=== PATIENT | female | born 1965 | race Caucasian/White ===

== ENCOUNTER 2019-04-10 21:12 | Emergency (ER) | payer MEDICARE ==
[2019-04-10] MEDS ORDERED: predniSONE 20 MG TAB ONE (21:30)
[2019-04-10] MEDS ORDERED: Famotidine 20 MG TAB ONE (21:30)
== END 2019-04-10 21:35 | disposition home or self-care (01) ==
LOC: NAV ERS 21:12
DX: L50.9 Urticaria, unspecified (principal); J44.9 Chronic obstructive pulmonary disease, unspecified; G43.909 Migraine, unspecified, not intractable, without status migrainosus; F31.9 Bipolar disorder, unspecified; F20.9 Schizophrenia, unspecified; F41.9 Anxiety disorder, unspecified; F17.210 Nicotine dependence, cigarettes, uncomplicated; Z79.899 Other long term (current) drug therapy; Z79.51 Long term (current) use of inhaled steroids
CPT/HCPCS: 99282; J7512

== ENCOUNTER 2019-09-06 14:51 | Emergency (ER) | payer MEDICARE, OTHER ==
[2019-09-06] MEDS ORDERED: methylPREDNISolone Acetate 40 mg/ml Vial ONE (15:38)
[2019-09-06] MEDS ORDERED: traMADol HCl 50 MG TAB ONE (15:38)
== END 2019-09-06 15:58 | disposition home or self-care (01) ==
LOC: NAV ERS 14:51
DX: M06.9 Rheumatoid arthritis, unspecified (principal); M77.9 Enthesopathy, unspecified; F31.9 Bipolar disorder, unspecified; F20.9 Schizophrenia, unspecified; F41.9 Anxiety disorder, unspecified; G43.909 Migraine, unspecified, not intractable, without status migrainosus; F17.210 Nicotine dependence, cigarettes, uncomplicated
CPT/HCPCS: 96372; 99283; J1030

== ENCOUNTER 2019-11-21 22:40 | Emergency (ER) | payer MEDICARE ==
[2019-11-21] MEDS ORDERED: Morphine 4 MG/ML VIAL ONE (23:14)
== END 2019-11-21 23:34 | disposition home or self-care (01) ==
LOC: NAV ERS 22:40
DX: M54.2 Cervicalgia (principal); G89.29 Other chronic pain; J44.9 Chronic obstructive pulmonary disease, unspecified; G43.909 Migraine, unspecified, not intractable, without status migrainosus; K74.60 Unspecified cirrhosis of liver; F31.9 Bipolar disorder, unspecified; F20.9 Schizophrenia, unspecified; F17.210 Nicotine dependence, cigarettes, uncomplicated
CPT/HCPCS: 96372; 99283; J2270

== ENCOUNTER 2019-12-26 15:27 | Emergency (ER) | payer MEDICARE ==
--- NOTE | 2019-12-26 15:57 | RAD ---
LEFT WRIST 3 VIEWS: HISTORY: Injury, left wrist pain. FINDINGS/IMPRESSION: No acute fracture or dislocation is identified. If symptoms do not improve, followup exam should be obtained in 7-10 days. POS: [facility]
[2019-12-26] MEDS ORDERED: traMADol HCl 50 MG TAB ONE (16:15)
== END 2019-12-26 16:22 | disposition home or self-care (01) ==
LOC: NAV ERS 15:27
DX: S63.502A Unspecified sprain of left wrist, initial encounter (principal); J44.9 Chronic obstructive pulmonary disease, unspecified; G43.909 Migraine, unspecified, not intractable, without status migrainosus; F41.9 Anxiety disorder, unspecified; F31.9 Bipolar disorder, unspecified; F17.210 Nicotine dependence, cigarettes, uncomplicated; W20.8XXA Other cause of strike by thrown, projected or falling object, initial encounter

== ENCOUNTER 2019-12-30 22:38 | Emergency (ER) | payer MEDICARE ==
[2019-12-30] MEDS ORDERED: Ketorolac Tromethamine 60 MG/2 ML VIAL ONE (23:23)
--- NOTE | 2019-12-30 23:39 | RAD ---
RADIOGRAPH LEFT WRIST 3 VIEWS: DATE: 12/30/2019 11:19 PM HISTORY: 54-year-old female with acute, traumatic left wrist pain FINDINGS: No fracture is identified. However, if there is snuffbox tenderness following trauma that suggests an occult scaphoid fracture, then the general recommendation is immobilization and follow-up imaging in 5-10 days. Chronic mild diastases of the distal radial ulnar joint. No interval change since 12/30/2017. IMPRESSION: No evidence of acute fracture
== END 2019-12-30 23:56 | disposition home or self-care (01) ==
LOC: NAV ERS 22:38
DX: M25.532 Pain in left wrist (principal); J44.9 Chronic obstructive pulmonary disease, unspecified; G43.909 Migraine, unspecified, not intractable, without status migrainosus; F41.9 Anxiety disorder, unspecified; F31.9 Bipolar disorder, unspecified; F17.210 Nicotine dependence, cigarettes, uncomplicated
CPT/HCPCS: 96372; J1885

== ENCOUNTER 2020-04-08 19:32 | Emergency (ER) | payer MEDICARE ==
[2020-04-08] MEDS ORDERED: Adacel (T-DAP) 0.5 ML SYRINGE ONE (19:46)
[2020-04-08] MEDS ORDERED: Bacitracin 1 PK ONE (19:46)
--- NOTE | 2020-04-08 20:19 | RAD ---
XR Shoulder Rt 3 View STANDARD History: Fall. Pain Comparison: None. Findings: Evidence of old injury of the acromioclavicular joint with erosive changes of the acromion and narrowed distal clavicle. No acute displaced fracture or malalignment. Ribs are intact. Impression: Chronic findings. No acute fracture.
--- NOTE | 2020-04-08 20:23 | RAD ---
XR Elbow Rt 2 View History: Tripped and fell Comparison: None. Findings: The previously radiopaque debris along the midforearm and mid humerus although only seen on a single view and could be artifact. No acute displaced fracture or malalignment. Impression: No acute displaced fracture or malalignment of the elbow. No joint effusion.
[2020-04-08] MEDS ORDERED: Ketorolac Tromethamine 60 MG/2 ML VIAL ONE (20:29)
[2020-04-08] MEDS ORDERED: Ondansetron ODT 4 MG TAB ONE (20:29)
[2020-04-08] MEDS ORDERED: HYDROcodone/Acetaminophen 5/325 mg Tablet ONE (20:29)
--- NOTE | 2020-04-08 20:53 | RAD ---
XR Knee Lt 4 View STANDARD History: Injury. Tripped and fell Comparison: None. Findings: No simple joint effusion. Mild vascular calcifications. No acute fracture or malalignment. Small medial and lateral compartment osteophytes. Impression: No acute fracture or malalignment.
== END 2020-04-08 21:00 | disposition home or self-care (01) ==
LOC: NAV ERS 19:32
DX: S80.02XA Contusion of left knee, initial encounter (principal); S50.01XA Contusion of right elbow, initial encounter; S40.011A Contusion of right shoulder, initial encounter; S80.212A Abrasion, left knee, initial encounter; F41.1 Generalized anxiety disorder; F43.0 Acute stress reaction; J44.9 Chronic obstructive pulmonary disease, unspecified; K74.60 Unspecified cirrhosis of liver; F41.9 Anxiety disorder, unspecified; F31.9 Bipolar disorder, unspecified; F17.210 Nicotine dependence, cigarettes, uncomplicated; Z79.51 Long term (current) use of inhaled steroids; Z23 Encounter for immunization; Z79.899 Other long term (current) drug therapy; W01.0XXA Fall on same level from slipping, tripping and stumbling without subsequent striking against object, initial encounter
CPT/HCPCS: 90471; 90715; 96372; J1885; Q0162

== ENCOUNTER 2020-10-06 11:16 | Emergency (ER) | payer MEDICARE, SELFPAY | END 2020-10-06 12:10 | disposition left against medical advice (07) | LOC: NAV ERS 11:16 | DX: R50.9 Fever, unspecified (principal); R10.11 Right upper quadrant pain; R53.83 Other fatigue; R05 Cough; R06.02 Shortness of breath; R11.2 Nausea with vomiting, unspecified; R19.7 Diarrhea, unspecified; Z20.828 Contact with and (suspected) exposure to other viral communicable diseases; R07.89 Other chest pain; F17.200 Nicotine dependence, unspecified, uncomplicated | CPT/HCPCS: 93005; 94760 ==

== ENCOUNTER 2020-12-06 14:29 | Emergency (ER) | payer MEDICARE ==
--- NOTE | 2020-12-06 16:16 | RAD ---
Exam:Hand first digit 3 views HISTORY: Swelling. Erythema. 1 month injury. COMPARISON: None FINDINGS: Soft tissue swelling. Punctate calcification, likely chronic. Mild loss of the distal inter phalangeal joint space. No acute fracture. No cortical irregularity or periosteal reaction. No radiopaque foreign body. IMPRESSION: 1. Soft tissue swelling. 2. No evidence of fracture. No evidence of radiopaque foreign body.
== END 2020-12-06 16:09 | disposition home or self-care (01) ==
LOC: NAV ERS 14:29
DX: M79.644 Pain in right finger(s) (principal); J44.9 Chronic obstructive pulmonary disease, unspecified; F17.210 Nicotine dependence, cigarettes, uncomplicated; K74.60 Unspecified cirrhosis of liver

== ENCOUNTER 2021-02-14 14:30 | Emergency (ER) | payer MEDICARE ==
[2021-02-14] MEDS ORDERED: ALPRAZolam 0.5 MG TAB ONE (15:31)
[2021-02-14] MEDS ORDERED: Acetaminophen 500 MG TAB ONE ×2 (15:31)
[2021-02-14 15:34] LABS: #Basophils 0.1 thou/uL (0.0-0.2); #Eosinphils 0.2 thou/uL (0.0-0.7); #Lymphocytes 2.6 thou/uL (1.20-3.40); #Monocytes 0.5 thou/uL (0.11-0.59); %Basophils 1.4 % (0.0-1.0); %Eosinophils 2.2 % (0.0-10.0); %Lymphocytes 35.7 % (21.0-51.0); %Monocytes 6.3 % (0.0-10.0); %Neutrophils 54.4 % (42.0-75.0); Hemoglobin 12.2 g/dL (12.0-16.0); Mean Corpuscular HGB CONC 30.4 g/dL (32.0-36.0); Mean Corpuscular Hemoglobin 27.8 pg (27.0-31.0); Mean Corpuscular Volume 91.5 fL (78.0-98.0); Mean Platelet Volume 7.8 fL (7.4-10.4); Platelet Count 235 thou/uL (130-400); RBC Distribution Width 12.3 % (11.5-14.5); White Blood Cell (WBC) Count 7.4 thou/uL (4.8-10.8)
[2021-02-14 15:49] LABS: ALT (SGPT) 34 U/L (8-55); AST (SGOT) 33 U/L (5-34); Acetaminophen Less than 6.0 mcg/mL (10.0-30.0); Albumin 3.9 g/dL (3.5-5.0); Alcohol 27 mg/dL (Less than 10); Alkaline Phosphatase 103 U/L (40-110); Anion Gap 15 mmol/L (10-20); BUN (Urea Nitrogen) 14 mg/dL (9.8-20.1); Bilirubin, Total 0.4 mg/dL (0.2-1.2); Calc. Creatinine Clearance 0 mL/min (70-130); Calcium 8.6 mg/dL (7.8-10.44); Carbon Dioxide 23 mmol/L (22-29); Chloride 104 mmol/L (98-107); Globulin 3.2 g/dL (2.4-3.5); Glucose 111 mg/dL (70-105); Potassium 3.9 mmol/L (3.5-5.1); Protein, Total 7.1 g/dL (6.0-8.3); Salicylate Less than 8.0 mg/dL (15.0-30.0); Sodium 138 mmol/L (136-145)
[2021-02-14 16:30] LABS: Bilirubin Negative (Negative); Blood, Urine Negative (Negative); Glucose, Urine (Dipstick) Negative (Negative); Ketone, Urine Negative (Negative); Leukocyte Moderate (Negative); Nitrite Negative (Negative); Protein, Urine (Dipstick) Negative (Neg-Trace); Urobilinogen 0.2 mg/dL (Less than 2)
[2021-02-14 16:31] LABS: Clarity SL HAZY (Clear)
[2021-02-14 16:32] LABS: Pregnancy Test - Urine (BHCG) Negative (Negative); Pregu Control Background? CLEAR/WHITE (CLR/WHITE); Pregu Control Bar Appear? YES (CONTROL BAR)
[2021-02-14 16:35] LABS: Amphetamine Detected (NotDetected); Barbiturates Screen Not Detected (NotDetected); Benzodiazepine Screen Not Detected (NotDetected); Cocaine Metabolite Screen Not Detected (NotDetected); Medtox Control Line Valid? VALID (VALID); Methadone Not Detected (NotDetected); Methamphetamine Detected (NotDetected); Opiate Screen Detected (NotDetected); Oxycodone Screen Not Detected (NotDetected); Phencyclidine (PCP) Not Detected (NotDetected); THC/Cannabinoid Screen Not Detected (NotDetected); Tricyclic Screen Not Detected (NotDetected)
[2021-02-14 16:41] LABS: RBC/HPF 0-3 HPF (0-3); Squamous Epithelial 0-3 HPF (0-3)
== END 2021-02-14 19:09 | disposition home or self-care (01) ==
LOC: NAV ERS 14:30
DX: S51.812A Laceration without foreign body of left forearm, initial encounter (principal); S51.851A Open bite of right forearm, initial encounter; F43.20 Adjustment disorder, unspecified; F15.10 Other stimulant abuse, uncomplicated; J44.9 Chronic obstructive pulmonary disease, unspecified; I10 Essential (primary) hypertension; F17.210 Nicotine dependence, cigarettes, uncomplicated; Z79.899 Other long term (current) drug therapy; Y28.1XXA Contact with knife, undetermined intent, initial encounter
CPT/HCPCS: 80053; 80306; 80307; 81003; 81015; 81025; 85025; 99284

== ENCOUNTER 2021-06-14 12:09 | Emergency (ER) | payer MEDICARE ==
[2021-06-14] MEDS ORDERED: Ondansetron ODT 4 MG TAB ONE (13:16)
[2021-06-14] MEDS ORDERED: Ketorolac Tromethamine 60 MG/2 ML VIAL ONE (13:16)
== END 2021-06-14 13:30 | disposition home or self-care (01) ==
LOC: NAV ERS 12:09
DX: S60.221A Contusion of right hand, initial encounter (principal); R00.0 Tachycardia, unspecified; I10 Essential (primary) hypertension; F17.210 Nicotine dependence, cigarettes, uncomplicated; Z79.82 Long term (current) use of aspirin; W22.8XXA Striking against or struck by other objects, initial encounter
CPT/HCPCS: 96372; J1885; Q0162

== ENCOUNTER 2021-07-22 17:32 | Emergency (ER) | payer OTHER, MEDICARE ==
[2021-07-22] MEDS ORDERED: Ketorolac Tromethamine 60 MG/2 ML VIAL ONE (18:20)
== END 2021-07-22 18:35 | disposition home or self-care (01) ==
LOC: NAV ERS 17:32
DX: S63.91XA Sprain of unspecified part of right wrist and hand, initial encounter (principal); J44.9 Chronic obstructive pulmonary disease, unspecified; I10 Essential (primary) hypertension; K74.60 Unspecified cirrhosis of liver; F17.210 Nicotine dependence, cigarettes, uncomplicated; W01.0XXA Fall on same level from slipping, tripping and stumbling without subsequent striking against object, initial encounter; Z79.82 Long term (current) use of aspirin
CPT/HCPCS: 96372; J1885

== ENCOUNTER 2021-11-18 19:26 | Emergency (ER) | payer OTHER, MEDICARE ==
[2021-11-18] MEDS ORDERED: HYDROcodone/Acetaminophen 5/325 mg Tablet ONE (19:55)
[2021-11-18] MEDS ORDERED: Amoxicillin/Potassium Clav 875 MG TAB ONE (19:55)
== END 2021-11-18 20:10 | disposition home or self-care (01) ==
LOC: NAV ERS 19:26
DX: S61.251A Open bite of left index finger without damage to nail, initial encounter (principal); I10 Essential (primary) hypertension; J44.9 Chronic obstructive pulmonary disease, unspecified; F17.210 Nicotine dependence, cigarettes, uncomplicated; W54.0XXA Bitten by dog, initial encounter; Z87.19 Personal history of other diseases of the digestive system
CPT/HCPCS: 99282

== ENCOUNTER 2021-12-29 | Emergency (ER) | payer MEDICARE ==
[2021-12-29] MEDS ORDERED: Ketorolac Tromethamine 30 MG/ML VIAL ONE (20:39)
[2021-12-29] MEDS ORDERED: Acetaminophen 500 MG TAB ONE (20:39)
[2021-12-29 20:43] LABS: #Basophils 0.1 thou/uL (0.0-0.2); #Eosinphils 0.1 thou/uL (0.0-0.7); #Lymphocytes 3.5 thou/uL (1.20-3.40); #Monocytes 0.5 thou/uL (0.11-0.59); #Neutrophils 5.8 thou/uL (1.40-6.50); %Basophils 1.4 % (0.0-1.0); %Eosinophils 1.2 % (0.0-10.0); %Lymphocytes 34.5 % (21.0-51.0); %Monocytes 4.8 % (0.0-10.0); Hemoglobin 15.7 g/dL (12.0-16.0); Mean Corpuscular HGB CONC 31.5 g/dL (32.0-36.0); Mean Corpuscular Hemoglobin 28.7 pg (27.0-31.0); Mean Platelet Volume 7.4 fL (7.4-10.4); Platelet Count 356 thou/uL (130-400); RBC Distribution Width 12.3 % (11.5-14.5); Red Blood Cell (RBC) Count 5.46 mill/uL (4.20-5.40)
[2021-12-29] MEDS ORDERED: Ondansetron PF 4 MG/2 ML Vial ONE (20:52)
[2021-12-29 21:01] LABS: ALT (SGPT) 37 U/L (8-55); AST (SGOT) 36 U/L (5-34); Albumin 4.4 g/dL (3.5-5.0); Alkaline Phosphatase 97 U/L (40-110); Anion Gap 16 mmol/L (10-20); BUN (Urea Nitrogen) 9 mg/dL (9.8-20.1); Bilirubin, Total 0.3 mg/dL (0.2-1.2); CK (CPK) 91 U/L (29-168); Calc. Creatinine Clearance 0 mL/min (70-130); Calcium 8.9 mg/dL (7.8-10.44); Carbon Dioxide 22 mmol/L (22-29); Chloride 104 mmol/L (98-107); Globulin 3.9 g/dL (2.4-3.5); Glucose 128 mg/dL (70-105); Potassium 4.1 mmol/L (3.5-5.1); Protein, Total 8.3 g/dL (6.0-8.3); Sodium 138 mmol/L (136-145)
[2021-12-29] MEDS ORDERED: Azithromycin 500 MG VIAL ONE (21:35)
[2021-12-29] MEDS ORDERED: cefTRIAXone\\ROCEPHIN 1 GM VIAL ONE (21:35)
[2021-12-29 22:59] LABS: Bilirubin Negative (Negative); Blood, Urine Negative (Negative); Clarity Clear (Clear); Glucose, Urine (Dipstick) Negative (Negative); Ketone, Urine Negative (Negative); Leukocyte Small (Negative); Nitrite Negative (Negative); Protein, Urine (Dipstick) Negative (Neg-Trace); Urobilinogen 0.2 mg/dL (Less than 2)
[2021-12-29 23:05] LABS: Bacteria/HPF None Seen HPF (None Seen); RBC/HPF None Seen HPF (0-3); Squamous Epithelial None Seen HPF (0-3)
[2021-12-30 14:58] LABS: SARS-CoV-2 PCR by NAA Not Detected (NotDetected)
== END 2021-12-29 23:21 | disposition home or self-care (01) ==
CPT/HCPCS: 71045; 80053; 82550; 83605; 85025; 87040; 87086; 87804 ×2; U0003; U0005; 36415; 81003; 81015; 96365; 96367; 96375; J0456; J0696; J1885; J2405

== ENCOUNTER 2022-01-11 19:13 | Emergency (ER) | payer MEDICARE ==
[~2022-01-11 19:13] MED LIST: Iopamidol 370 76% 100 ML VIAL ONE
[2022-01-11] MEDS ORDERED: Ondansetron ODT 4 MG TAB ONE (20:14)
[2022-01-11 20:17] LABS: #Basophils 0.1 thou/uL (0.0-0.2); #Eosinphils 0.1 thou/uL (0.0-0.7); #Lymphocytes 2.9 thou/uL (1.20-3.40); #Monocytes 0.5 thou/uL (0.11-0.59); #Neutrophils 7.4 thou/uL (1.40-6.50); %Basophils 0.8 % (0.0-1.0); %Eosinophils 0.8 % (0.0-10.0); %Lymphocytes 26.6 % (21.0-51.0); %Monocytes 4.4 % (0.0-10.0); %Neutrophils 67.4 % (42.0-75.0); Hemoglobin 12.5 g/dL (12.0-16.0); Mean Corpuscular HGB CONC 30.8 g/dL (32.0-36.0); Mean Corpuscular Hemoglobin 28.7 pg (27.0-31.0); Mean Corpuscular Volume 93.2 fL (78.0-98.0); Mean Platelet Volume 8.5 fL (7.4-10.4); Platelet Count 236 thou/uL (130-400); RBC Distribution Width 12.1 % (11.5-14.5); Red Blood Cell (RBC) Count 4.36 mill/uL (4.20-5.40)
[2022-01-11] MEDS ORDERED: Mag-Al Plus 1200 MG/1200 MG/120 MG/30 ML UDCUP ONE (20:22)
[2022-01-11] MEDS ORDERED: Lidocaine Viscous Sol 2% 15 ml UD Cup ONE (20:22)
[2022-01-11 20:39] LABS: ALT (SGPT) 25 U/L (8-55); AST (SGOT) 26 U/L (5-34); Albumin 3.9 g/dL (3.5-5.0); Alkaline Phosphatase 75 U/L (40-110); Anion Gap 14 mmol/L (10-20); BUN (Urea Nitrogen) 9 mg/dL (9.8-20.1); Bilirubin, Total 0.3 mg/dL (0.2-1.2); Calc. Creatinine Clearance 0 mL/min (70-130); Calcium 8.8 mg/dL (7.8-10.44); Carbon Dioxide 24 mmol/L (22-29); Chloride 104 mmol/L (98-107); Globulin 3.1 g/dL (2.4-3.5); Glucose 112 mg/dL (70-105); Lipase 44 U/L (8-78); Potassium 3.4 mmol/L (3.5-5.1); Sodium 139 mmol/L (136-145)
[2022-01-11] MEDS ORDERED: Morphine 4 MG/ML VIAL ONE (21:31)
== END 2022-01-11 22:39 | disposition home or self-care (01) ==
LOC: NAV ERS 19:13
DX: G89.18 Other acute postprocedural pain (principal); R10.13 Epigastric pain; D17.71 Benign lipomatous neoplasm of kidney; J44.9 Chronic obstructive pulmonary disease, unspecified; I70.0 Atherosclerosis of aorta; I70.8 Atherosclerosis of other arteries; I10 Essential (primary) hypertension; F17.210 Nicotine dependence, cigarettes, uncomplicated
CPT/HCPCS: 36415; 74177; 80053; 83690; 84484; 85025; 93005; 96374; J2270; Q0162; Q9967

== ENCOUNTER 2022-01-21 15:36 | Emergency (ER) | payer MEDICARE ==
[2022-01-21] MEDS ORDERED: Acetaminophen 500 MG TAB ONE (16:46)
[2022-01-21] MEDS ORDERED: Ketorolac Tromethamine 30 MG/ML VIAL ONE (16:46)
== END 2022-01-21 17:17 | disposition home or self-care (01) ==
LOC: NAV ERS 15:36

== ENCOUNTER 2022-04-03 15:07 | Emergency (ER) | payer OTHER, MEDICARE ==
[2022-04-03] MEDS ORDERED: Ketorolac Tromethamine 60 MG/2 ML VIAL ONE (16:08)
== END 2022-04-03 17:03 | disposition home or self-care (01) ==
LOC: NAV ERS 15:07
DX: S60.221A Contusion of right hand, initial encounter (principal); S80.12XA Contusion of left lower leg, initial encounter; W01.10XA Fall on same level from slipping, tripping and stumbling with subsequent striking against unspecified object, initial encounter; J44.9 Chronic obstructive pulmonary disease, unspecified; I10 Essential (primary) hypertension; F17.210 Nicotine dependence, cigarettes, uncomplicated
CPT/HCPCS: 96372; J1885

== ENCOUNTER 2022-04-30 10:28 | Outpatient (CLI) | payer MEDICARE | END 2022-04-30 10:29 | disposition home or self-care (01) | LOC: NAV RAD 10:28 | PROVIDERS: ATTEND Family Medicine | DX: M25.531 Pain in right wrist (principal); M25.532 Pain in left wrist; M19.041 Primary osteoarthritis, right hand; M19.042 Primary osteoarthritis, left hand; M79.89 Other specified soft tissue disorders ==

== ENCOUNTER 2022-07-02 13:08 | Emergency (ER) | payer MEDICARE ==
[2022-07-02] MEDS ORDERED: Ketorolac Tromethamine 30 MG/ML VIAL ONE (14:25)
== END 2022-07-02 15:15 | disposition home or self-care (01) ==
LOC: NAV ERS 13:08
DX: S23.41XA Sprain of ribs, initial encounter (principal); J44.9 Chronic obstructive pulmonary disease, unspecified; I10 Essential (primary) hypertension; F17.210 Nicotine dependence, cigarettes, uncomplicated; W22.09XA Striking against other stationary object, initial encounter
CPT/HCPCS: 96372; 99283; J1885

== ENCOUNTER 2022-07-04 18:13 | Emergency (ER) | payer MEDICARE ==
[2022-07-04] MEDS ORDERED: HYDROcodone/Acetaminophen 10/325 mg Tablet ONE (19:16)
== END 2022-07-04 19:50 | disposition home or self-care (01) ==
LOC: NAV ERS 18:13
DX: S29.011A Strain of muscle and tendon of front wall of thorax, initial encounter (principal); F17.210 Nicotine dependence, cigarettes, uncomplicated; K21.9 Gastro-esophageal reflux disease without esophagitis; J44.9 Chronic obstructive pulmonary disease, unspecified; Z79.899 Other long term (current) drug therapy; W19.XXXA Unspecified fall, initial encounter

== ENCOUNTER 2022-10-11 01:01 | Emergency (ER) | payer MEDICARE ==
[2022-10-11] MEDS ORDERED: Ketorolac Tromethamine 60 MG/2 ML VIAL ONE (01:30)
== END 2022-10-11 01:44 | disposition home or self-care (01) ==
LOC: NAV ERS 01:01
DX: M77.11 Lateral epicondylitis, right elbow (principal); J44.9 Chronic obstructive pulmonary disease, unspecified; F17.210 Nicotine dependence, cigarettes, uncomplicated
CPT/HCPCS: 96372; 99283; J1885

== ENCOUNTER 2022-10-28 12:29 | Emergency (ER) | payer MEDICARE ==
[2022-10-28] MEDS ORDERED: Ketorolac Tromethamine 60 MG/2 ML VIAL ONE (12:56)
[2022-10-28] MEDS ORDERED: Orphenadrine Citrate 60 MG/2 ML VIAL ONE (12:56)
[2022-10-28] MEDS ORDERED: HYDROcodone/Acetaminophen 10/325 mg Tablet ONE (14:00)
== END 2022-10-28 14:32 | disposition home or self-care (01) ==
LOC: NAV ERS 12:29
DX: M54.2 Cervicalgia (principal); G89.29 Other chronic pain; J44.9 Chronic obstructive pulmonary disease, unspecified; K21.9 Gastro-esophageal reflux disease without esophagitis; G62.9 Polyneuropathy, unspecified; F17.210 Nicotine dependence, cigarettes, uncomplicated; X50.1XXA Overexertion from prolonged static or awkward postures, initial encounter; Z79.899 Other long term (current) drug therapy
CPT/HCPCS: 72125; 96372; J1885; J2360

== ENCOUNTER 2022-12-04 13:56 | Emergency (ER) | payer MEDICARE ==
[2022-12-04] MEDS ORDERED: Sodium Chloride 0.9% 1,000 ML ONE (16:16)
[2022-12-04] MEDS ORDERED: diphenhydrAMINE 50 MG/ML VIAL ONE (16:16)
[2022-12-04] MEDS ORDERED: Prochlorperazine 10 MG/2 ML VIAL ONE (16:16)
[2022-12-04] MEDS ORDERED: Ketorolac Tromethamine 30 MG/ML VIAL ONE (16:16)
== END 2022-12-04 17:30 | disposition home or self-care (01) ==
LOC: NAV ERS 13:56
DX: G43.909 Migraine, unspecified, not intractable, without status migrainosus (principal); K21.9 Gastro-esophageal reflux disease without esophagitis; F17.210 Nicotine dependence, cigarettes, uncomplicated
CPT/HCPCS: 96365; 96375; J0780; J1200; J1885; J7050

== ENCOUNTER 2023-03-22 09:58 | Emergency (ER) | payer MEDICARE ==
[2023-03-22] MEDS ORDERED: Ondansetron PF 4 MG/2 ML Vial ONE (10:42)
[2023-03-22] MEDS ORDERED: Morphine 4 MG/ML VIAL ONE (10:42)
[2023-03-22 11:21] LABS: #Basophils 0.1 thou/uL (0.0-0.2); #Eosinphils 0.2 thou/uL (0.0-0.7); #Lymphocytes 2.8 thou/uL (1.20-3.40); #Monocytes 0.6 thou/uL (0.11-0.59); #Neutrophils 4.8 thou/uL (1.40-6.50); %Basophils 1.1 % (0.0-1.0); %Lymphocytes 33.4 % (21.0-51.0); %Monocytes 6.6 % (0.0-10.0); Hemoglobin 13.7 g/dL (12.0-16.0); Mean Corpuscular HGB CONC 31.3 g/dL (32.0-36.0); Mean Corpuscular Hemoglobin 27.6 pg (27.0-31.0); Mean Corpuscular Volume 88.4 fl (78.0-98.0); Mean Platelet Volume 6.8 fL (7.4-10.4); Platelet Count 269 10x3/uL (130-400); RBC Distribution Width 12.5 % (11.5-14.5); Red Blood Cell (RBC) Count 4.95 mill/uL (4.20-5.40); White Blood Cell (WBC) Count 8.5 10x3/uL (4.8-10.8)
[2023-03-22 11:35] LABS: ALT (SGPT) 48 U/L (8-55); AST (SGOT) 38 U/L (5-34); Albumin 3.6 g/dL (3.5-5.0); Alkaline Phosphatase 102 U/L (40-110); Anion Gap 12 mmol/L (10-20); BUN (Urea Nitrogen) 12 mg/dL (9.8-20.1); Bilirubin, Total 0.2 mg/dL (0.2-1.2); Calc. Creatinine Clearance 0 mL/min (70-130); Calcium 8.6 mg/dL (7.8-10.44); Carbon Dioxide 26 mmol/L (22-29); Chloride 103 mmol/L (98-107); Estimated GFR 102; Glucose 116 mg/dL (70-105); Potassium 4.3 mmol/L (3.5-5.1); Protein, Total 6.6 g/dL (6.0-8.3); Sodium 137 mmol/L (136-145)
[2023-03-22] MEDS ORDERED: Morphine 2 MG/ML VIAL ONE (12:14)
[2023-03-22] MEDS ORDERED: Dexamethasone 4 mg/ml Vial ONE (12:45)
== END 2023-03-22 13:25 | disposition home or self-care (01) ==
LOC: NAV ERS 09:58
DX: G89.18 Other acute postprocedural pain (principal); J44.9 Chronic obstructive pulmonary disease, unspecified; K21.9 Gastro-esophageal reflux disease without esophagitis; F17.210 Nicotine dependence, cigarettes, uncomplicated; Z79.899 Other long term (current) drug therapy
CPT/HCPCS: 70492; 71045; 80053; 85025; 96374; 96375; 96376; J1100; J2270; J2272; J2405; Q9967

== ENCOUNTER 2023-04-24 12:51 | Outpatient (CLI) | payer MEDICARE | END 2023-04-24 12:52 | disposition home or self-care (01) | LOC: NAV RAD 12:51 | PROVIDERS: ATTEND Neurological Surgery | DX: M54.2 Cervicalgia (principal); M47.812 Spondylosis without myelopathy or radiculopathy, cervical region; Z98.1 Arthrodesis status | CPT/HCPCS: 72040 ==

== ENCOUNTER 2023-06-07 18:26 | Emergency (ER) | payer MEDICARE ==
[2023-06-07] MEDS ORDERED: Ketorolac Tromethamine 30 MG/ML VIAL ONE (19:31)
== END 2023-06-07 19:50 | disposition home or self-care (01) ==
LOC: NAV ERS 18:26
DX: S93.421A Sprain of deltoid ligament of right ankle, initial encounter (principal); K21.9 Gastro-esophageal reflux disease without esophagitis; J44.9 Chronic obstructive pulmonary disease, unspecified; F17.210 Nicotine dependence, cigarettes, uncomplicated; W22.8XXA Striking against or struck by other objects, initial encounter
CPT/HCPCS: 96372; J1885

== ENCOUNTER 2023-07-26 11:44 | Emergency (ER) | payer MEDICARE ==
[2023-07-26] MEDS ORDERED: Ketorolac Tromethamine 30 MG/ML VIAL ONE (12:10)
== END 2023-07-26 12:25 | disposition home or self-care (01) ==
LOC: NAV ERS 11:44
DX: M54.12 Radiculopathy, cervical region (principal); G89.29 Other chronic pain; J44.9 Chronic obstructive pulmonary disease, unspecified; F17.210 Nicotine dependence, cigarettes, uncomplicated
CPT/HCPCS: 96372; 99283; J1885

== ENCOUNTER 2023-09-15 10:53 | Outpatient (CLI) | payer MEDICARE | END 2023-09-15 10:54 | disposition home or self-care (01) | LOC: NAV RAD 10:53 | DX: M54.12 Radiculopathy, cervical region (principal) | CPT/HCPCS: 72040 ==

== ENCOUNTER 2023-11-06 17:34 | Emergency (ER) | payer MEDICARE ==
[2023-11-06] MEDS ORDERED: Ketorolac Tromethamine 60 MG/2 ML VIAL ONE (18:30)
== END 2023-11-06 18:38 | disposition home or self-care (01) ==
LOC: NAV ERS 17:34
DX: M79.18 Myalgia, other site (principal); J44.9 Chronic obstructive pulmonary disease, unspecified; K21.9 Gastro-esophageal reflux disease without esophagitis; F17.210 Nicotine dependence, cigarettes, uncomplicated; Z79.899 Other long term (current) drug therapy
CPT/HCPCS: 96372; 99283; J1885

== ENCOUNTER 2023-12-19 16:10 | Emergency (ER) | payer MEDICARE ==
[2023-12-19] MEDS ORDERED: Ibuprofen 200 MG TAB ONE (17:09)
== END 2023-12-19 17:17 | disposition home or self-care (01) ==
LOC: NAV ERS 16:10
DX: S63.502A Unspecified sprain of left wrist, initial encounter (principal); F17.210 Nicotine dependence, cigarettes, uncomplicated; J44.9 Chronic obstructive pulmonary disease, unspecified; X58.XXXA Exposure to other specified factors, initial encounter

== ENCOUNTER 2023-12-28 08:48 | Outpatient (CLI) | payer MEDICARE ==
[2023-12-28] MEDS ORDERED: Iopamidol 370 76% 100 ML VIAL ONE (09:00)
== END 2023-12-28 08:49 | disposition home or self-care (01) ==
LOC: NAV RAD 08:48 → NAV CT 08:49
PROVIDERS: ATTEND Neurological Surgery
DX: M54.2 Cervicalgia (principal); M48.02 Spinal stenosis, cervical region; I65.23 Occlusion and stenosis of bilateral carotid arteries; Z98.1 Arthrodesis status
CPT/HCPCS: 70498; Q9967

== ENCOUNTER 2024-02-02 15:50 | Emergency (ER) | payer MEDICARE ==
[2024-02-02] MEDS ORDERED: Morphine 4 MG/ML VIAL ONE ×2 (16:24→19:14)
[2024-02-02] MEDS ORDERED: Ketorolac Tromethamine 30 MG (1 mL) VIAL ONE (16:24)
[2024-02-02 16:40] LABS: #Basophils 0.1 thou/uL (0.0-0.2); #Eosinphils 0.1 thou/uL (0.0-0.7); #Monocytes 0.5 thou/uL (0.11-0.59); %Basophils 1.4 % (0.0-1.0); %Eosinophils 1.3 % (0.0-10.0); %Lymphocytes 34.3 % (21.0-51.0); %Monocytes 5.3 % (0.0-10.0); %Neutrophils 57.6 % (42.0-75.0); Hematocrit 42.4 % (36.0-47.0); Hemoglobin 13.1 g/dL (12.0-16.0); Mean Corpuscular Hemoglobin 27.2 pg (27.0-31.0); Mean Corpuscular Volume 87.9 fl (78.0-98.0); Mean Platelet Volume 7.6 fL (7.4-10.4); Platelet Count 253 10x3/uL (130-400); RBC Distribution Width 12.5 % (11.5-14.5); Red Blood Cell (RBC) Count 4.82 mill/uL (4.20-5.40); White Blood Cell (WBC) Count 8.6 10x3/uL (4.8-10.8)
[2024-02-02 17:17] LABS: ALT (SGPT) 48 U/L (8-55); AST (SGOT) 47 U/L (5-34); Albumin 4.3 g/dL (3.5-5.0); Alkaline Phosphatase 112 U/L (40-110); Anion Gap 15 mmol/L (10-20); BUN (Urea Nitrogen) 16 mg/dL (9.8-20.1); Bilirubin, Total 0.5 mg/dL (0.2-1.2); Calc. Creatinine Clearance 0 mL/min (70-130); Calcium 9.4 mg/dL (7.8-10.44); Carbon Dioxide 26 mmol/L (22-29); Chloride 102 mmol/L (98-107); Estimated GFR 86; Globulin 2.9 g/dL (2.4-3.5); Glucose 105 mg/dL (70-105); Potassium 4.2 mmol/L (3.5-5.1); Protein, Total 7.2 g/dL (6.0-8.3); Sodium 139 mmol/L (136-145)
[2024-02-02 19:34] LABS: Bilirubin Negative (Negative); Blood, Urine Trace (Negative); Glucose, Urine (Dipstick) Negative (Negative); Ketone, Urine Negative (Negative); Leukocyte Moderate (Negative); Nitrite Negative (Negative); Protein, Urine (Dipstick) Negative (Neg-Trace); Specific Gravity, Urine 1.015 (1.005-1.030); pH, Urine 6.5 (5.0-9.0)
[2024-02-02 19:44] LABS: Clarity Hazy (Clear)
[2024-02-02 19:45] LABS: CAUTI Indications for Culture Dysuria,urgency,freq; RBC/HPF 0-3 HPF (0-3)
[2024-02-02 19:46] LABS: Urine Culture Reflex No No
== END 2024-02-02 22:08 | disposition left against medical advice (07) ==
LOC: NAV ERS 15:50
DX: R10.31 Right lower quadrant pain (principal); J44.9 Chronic obstructive pulmonary disease, unspecified; F17.210 Nicotine dependence, cigarettes, uncomplicated; Z79.899 Other long term (current) drug therapy
CPT/HCPCS: 74177; 80053; 81001; 83605; 85025; 87040; 93005; 96374; 96375; 96376; J1885; J2270; Q9967

== ENCOUNTER 2024-03-26 13:25 | Emergency (ER) | payer MEDICARE ==
[2024-03-26] MEDS ORDERED: Acetaminophen 500 MG TAB ONE (14:34)
[2024-03-26] MEDS ORDERED: HYDROcodone/Acetaminophen 5/325 mg Tablet ONE (15:07)
== END 2024-03-26 15:25 | disposition home or self-care (01) ==
LOC: NAV ERS 13:25
DX: S63.501A Unspecified sprain of right wrist, initial encounter (principal); S61.221A Laceration with foreign body of left index finger without damage to nail, initial encounter; R00.0 Tachycardia, unspecified; F17.210 Nicotine dependence, cigarettes, uncomplicated; W22.8XXA Striking against or struck by other objects, initial encounter
CPT/HCPCS: 29125

== ENCOUNTER 2024-05-17 16:43 | Emergency (ER) | payer MEDICARE ==
[2024-05-17] MEDS ORDERED: Ipratropium/Albuterol 3 ML NEB ONE (17:08)
[2024-05-17] MEDS ORDERED: methylPREDNISolone Sod Succ/PF 125 MG/2 ML VIAL ONE (17:09)
[2024-05-17] MEDS ORDERED: Ketorolac Tromethamine 30 MG (1 mL) VIAL ONE (17:09)
[2024-05-17 17:31] LABS: #Basophils 0.1 thou/uL (0.0-0.2); #Eosinphils 0.2 thou/uL (0.0-0.7); #Lymphocytes 2.8 thou/uL (1.20-3.40); #Monocytes 0.5 thou/uL (0.11-0.59); #Neutrophils 3.9 thou/uL (1.40-6.50); %Basophils 1.1 % (0.0-1.0); %Eosinophils 2.1 % (0.0-10.0); %Lymphocytes 37.7 % (21.0-51.0); %Monocytes 6.8 % (0.0-10.0); %Neutrophils 52.3 % (42.0-75.0); Hematocrit 39.7 % (36.0-47.0); Hemoglobin 12.3 g/dL (12.0-16.0); Mean Corpuscular HGB CONC 30.9 g/dL (32.0-36.0); Mean Corpuscular Hemoglobin 26.4 pg (27.0-31.0); Mean Corpuscular Volume 85.4 fl (78.0-98.0); Mean Platelet Volume 7.1 fL (7.4-10.4); Platelet Count 197 10x3/uL (130-400); Red Blood Cell (RBC) Count 4.65 mill/uL (4.20-5.40); White Blood Cell (WBC) Count 7.4 10x3/uL (4.8-10.8)
[2024-05-17] MEDS ORDERED: Ketorolac Tromethamine 60 MG/2 ML VIAL ONE (17:45)
[2024-05-17] MEDS ORDERED: methylPREDNISolone Acetate 40 mg/ml Vial ONE (17:46)
[2024-05-17 17:48] LABS: ALT (SGPT) 41 U/L (8-55); AST (SGOT) 37 U/L (5-34); Albumin 3.4 g/dL (3.5-5.0); Alkaline Phosphatase 112 U/L (40-110); Anion Gap 14 mmol/L (10-20); BUN (Urea Nitrogen) 14 mg/dL (9.8-20.1); Bilirubin, Total 0.4 mg/dL (0.2-1.2); Calc. Creatinine Clearance 0 mL/min (70-130); Calcium 8.7 mg/dL (7.8-10.44); Carbon Dioxide 24 mmol/L (22-29); Chloride 102 mmol/L (98-107); Estimated GFR 100; Globulin 2.9 g/dL (2.4-3.5); Glucose 118 mg/dL (70-105); Potassium 4.1 mmol/L (3.5-5.1); Protein, Total 6.3 g/dL (6.0-8.3); Sodium 136 mmol/L (136-145)
[2024-05-17 18:29] LABS: SARS-CoV-2 E Target Negative; SARS-CoV-2 N2 Target Negative; SARS-CoV-2 NAA Rapid Test Not Detected (NotDetected); SARS-CoV-2 RdRP gene Negative
[2024-05-17 18:38] LABS: Amphetamine Detected (NotDetected); Barbiturates Screen Detected (NotDetected); Benzodiazepine Screen Not Detected (NotDetected); Bilirubin Negative (Negative); Blood, Urine Trace (Negative); CAUTI Indications for Culture Fever or rigors; Clarity Hazy (Clear); Cocaine Metabolite Screen Not Detected (NotDetected); Glucose, Urine (Dipstick) Negative (Negative); Ketone, Urine Negative (Negative); Leukocyte Moderate (Negative); Methadone Not Detected (NotDetected); Methamphetamine Detected (NotDetected); Nitrite Negative (Negative); Opiate Screen Not Detected (NotDetected); Oxycodone Screen Not Detected (NotDetected); Phencyclidine (PCP) Not Detected (NotDetected); Protein, Urine (Dipstick) Negative (Neg-Trace); RBC/HPF 0-3 HPF (0-3); Squamous Epithelial 0-3 HPF (0-3); THC/Cannabinoid Screen Not Detected (NotDetected); Trichomonas/HPF 1+ HPF (None Seen); Tricyclic Screen Not Detected (NotDetected); pH, Urine 7.5 (5.0-9.0)
[2024-05-17 18:39] LABS: Urine Culture Reflex No No
== END 2024-05-17 18:34 | disposition home or self-care (01) ==
LOC: NAV ERS 16:43
DX: J44.1 Chronic obstructive pulmonary disease with (acute) exacerbation (principal); M54.50 Low back pain, unspecified; M54.2 Cervicalgia; K02.9 Dental caries, unspecified; F17.210 Nicotine dependence, cigarettes, uncomplicated; Z96.651 Presence of right artificial knee joint
CPT/HCPCS: 36415; 71046; 80053; 80306; 81001; 85025; 87070; 87205; 94640; 96372; J1030; J1885; J2919; J7620; U0002

== ENCOUNTER 2024-05-24 17:12 | Emergency (ER) | payer MEDICARE | END 2024-05-24 18:09 | disposition home or self-care (01) | LOC: NAV ERS 17:12 | DX: S60.221A Contusion of right hand, initial encounter (principal); J44.9 Chronic obstructive pulmonary disease, unspecified; F17.210 Nicotine dependence, cigarettes, uncomplicated; Z79.899 Other long term (current) drug therapy; W20.8XXA Other cause of strike by thrown, projected or falling object, initial encounter ==

== ENCOUNTER 2024-07-02 09:25 | Emergency (ER) | payer MEDICARE ==
[2024-07-02] MEDS ORDERED: Ketorolac Tromethamine 60 MG/2 ML VIAL ONE (10:13)
[2024-07-02] MEDS ORDERED: Orphenadrine Citrate 60 MG/2 ML VIAL ONE (10:14)
== END 2024-07-02 11:21 | disposition home or self-care (01) ==
LOC: NAV ERS 09:25
DX: M54.12 Radiculopathy, cervical region (principal); G89.29 Other chronic pain; J44.89 Other specified chronic obstructive pulmonary disease; F17.210 Nicotine dependence, cigarettes, uncomplicated
CPT/HCPCS: 96372; 99283; J1885; J2360

== ENCOUNTER 2024-07-10 13:58 | Emergency (ER) | payer MEDICARE ==
[2024-07-10] MEDS ORDERED: Ketorolac Tromethamine 30 MG (1 mL) VIAL ONE (14:44)
[2024-07-10] MEDS ORDERED: Lorazepam 2 MG/ML VIAL ONE (14:45)
[2024-07-10 15:22] LABS: #Basophils 0.1 thou/uL (0.0-0.2); #Eosinphils 0.2 thou/uL (0.0-0.7); #Lymphocytes 2.4 thou/uL (1.20-3.40); #Monocytes 0.4 thou/uL (0.11-0.59); #Neutrophils 4.1 thou/uL (1.40-6.50); %Basophils 1.7 % (0.0-1.0); %Eosinophils 2.3 % (0.0-10.0); %Lymphocytes 33.6 % (21.0-51.0); %Monocytes 5.8 % (0.0-10.0); %Neutrophils 56.6 % (42.0-75.0); Hematocrit 43.2 % (36.0-47.0); Hemoglobin 13.7 g/dL (12.0-16.0); Mean Corpuscular HGB CONC 31.7 g/dL (32.0-36.0); Mean Corpuscular Hemoglobin 28.2 pg (27.0-31.0); Mean Platelet Volume 7.4 fL (7.4-10.4); Platelet Count 259 10x3/uL (130-400); RBC Distribution Width 12.8 % (11.5-14.5); Red Blood Cell (RBC) Count 4.86 mill/uL (4.20-5.40); White Blood Cell (WBC) Count 7.2 10x3/uL (4.8-10.8)
[2024-07-10 15:40] LABS: Anion Gap 17 mmol/L (10-20); BUN (Urea Nitrogen) 9 mg/dL (9.8-20.1); CK (CPK) 84 U/L (29-168); Calc. Creatinine Clearance 0 mL/min (70-130); Calcium 8.9 mg/dL (7.8-10.44); Carbon Dioxide 20 mmol/L (22-29); Chloride 106 mmol/L (98-107); Estimated GFR 100; Glucose 114 mg/dL (70-105); Potassium 4.4 mmol/L (3.5-5.1); Sodium 139 mmol/L (136-145)
[2024-07-10] MEDS ORDERED: traMADol HCl 50 MG TAB ONE (16:09)
== END 2024-07-10 16:47 | disposition home or self-care (01) ==
LOC: NAV ERS 13:58
DX: M62.838 Other muscle spasm (principal); M25.512 Pain in left shoulder; J44.89 Other specified chronic obstructive pulmonary disease; F17.210 Nicotine dependence, cigarettes, uncomplicated; Z79.899 Other long term (current) drug therapy
CPT/HCPCS: 72040; 80048; 82550; 85025; 86140; 96372; 99283; J1885; J2060

== ENCOUNTER 2024-07-11 20:39 | Emergency (ER) | payer MEDICARE | END 2024-07-11 21:23 | disposition home or self-care (01) | LOC: NAV ERS 20:39 | DX: M25.512 Pain in left shoulder (principal); J44.89 Other specified chronic obstructive pulmonary disease; F17.210 Nicotine dependence, cigarettes, uncomplicated | CPT/HCPCS: 96372; 99283 ==

== ENCOUNTER 2024-08-15 20:00 | Emergency (ER) | payer MEDICARE, SELFPAY ==
[2024-08-15] MEDS ORDERED: Ibuprofen 800 MG TAB ONE (20:14)
== END 2024-08-15 21:45 | disposition home or self-care (01) ==
LOC: NAV ERS 20:00
DX: S90.32XA Contusion of left foot, initial encounter (principal); J44.9 Chronic obstructive pulmonary disease, unspecified; F17.210 Nicotine dependence, cigarettes, uncomplicated; W20.8XXA Other cause of strike by thrown, projected or falling object, initial encounter; Y99.0 Civilian activity done for income or pay
CPT/HCPCS: 99283

== ENCOUNTER 2024-10-29 08:34 | Emergency (ER) | payer MEDICARE, OTHER ==
[2024-10-29 09:16] LABS: Bilirubin Negative (Negative); Blood, Urine Negative (Negative); Clarity Clear (Clear); Glucose, Urine (Dipstick) Negative (Negative); Ketone, Urine Negative (Negative); Leukocyte Small (Negative); Nitrite Negative (Negative); Protein, Urine (Dipstick) Negative (Neg-Trace); Specific Gravity, Urine 1.015 (1.005-1.030); Urobilinogen > or = 8.0 mg/dL (Less than 2)
[2024-10-29 09:19] LABS: RBC/HPF 0-3 HPF (0-3)
[2024-10-29] MEDS ORDERED: Acetaminophen 500 MG TAB ONE (09:19)
[2024-10-29 09:20] LABS: Bacteria/HPF Rare-Few HPF (None Seen); CAUTI Indications for Culture Alt mental st,lethar; Urine Culture Reflex No No
[2024-10-29 09:24] LABS: Amphetamine Detected (NotDetected); Barbiturates Screen Not Detected (NotDetected); Benzodiazepine Screen Not Detected (NotDetected); Cocaine Metabolite Screen Not Detected (NotDetected); Methadone Not Detected (NotDetected); Methamphetamine Detected (NotDetected); Opiate Screen Detected (NotDetected); Oxycodone Screen Not Detected (NotDetected); Phencyclidine (PCP) Not Detected (NotDetected); THC/Cannabinoid Screen Not Detected (NotDetected); Tricyclic Screen Not Detected (NotDetected)
[2024-10-29 09:42] LABS: #Lymphocytes 1.2 thou/uL (1.20-3.40); #Monocytes 0.7 thou/uL (0.11-0.59); #Neutrophils 2.9 thou/uL (1.40-6.50); %Eosinophils 0.5 % (0.0-10.0); %Monocytes 13.4 % (0.0-10.0); %Neutrophils 61.1 % (42.0-75.0); Hematocrit 38.8 % (36.0-47.0); Mean Corpuscular HGB CONC 30.9 g/dL (32.0-36.0); Mean Corpuscular Hemoglobin 25.3 pg (27.0-31.0); Mean Corpuscular Volume 81.7 fl (78.0-98.0); Mean Platelet Volume 7.7 fL (7.4-10.4); Platelet Count 201 10x3/uL (130-400); RBC Distribution Width 11.9 % (11.5-14.5); Red Blood Cell (RBC) Count 4.75 mill/uL (4.20-5.40); White Blood Cell (WBC) Count 4.8 10x3/uL (4.8-10.8)
[2024-10-29 10:17] LABS: ALT (SGPT) 47 U/L (8-55); AST (SGOT) 55 U/L (5-34); Albumin 3.1 g/dL (3.5-5.0); Alcohol Less than 10.0 mg/dL (Less than 10); Alkaline Phosphatase 404 U/L (40-110); Anion Gap 13 mmol/L (10-20); BUN (Urea Nitrogen) 8 mg/dL (9.8-20.1); Bilirubin, Total 0.5 mg/dL (0.2-1.2); Calc. Creatinine Clearance 0 mL/min (70-130); Calcium 8.9 mg/dL (7.8-10.44); Carbon Dioxide 25 mmol/L (22-29); Chloride 100 mmol/L (98-107); Estimated GFR 100; Glucose 118 mg/dL (70-105); Potassium 4.6 mmol/L (3.5-5.1); Protein, Total 7.1 g/dL (6.0-8.3); Sodium 133 mmol/L (136-145)
[2024-10-29] MEDS ORDERED: Azithromycin 250 MG TAB ONE (10:37)
== END 2024-10-29 10:50 | disposition home or self-care (01) ==
LOC: NAV ERS 08:34
DX: R50.9 Fever, unspecified (principal); R00.0 Tachycardia, unspecified; F12.10 Cannabis abuse, uncomplicated; J44.9 Chronic obstructive pulmonary disease, unspecified; F17.210 Nicotine dependence, cigarettes, uncomplicated; Z79.899 Other long term (current) drug therapy
CPT/HCPCS: 36415; 71045; 80053; 80306; 80307; 81001; 83605; 85025; 87428

== ENCOUNTER 2025-06-07 22:56 | Emergency (ER) | payer OTHER ==
[2025-06-07] MEDS ORDERED: Cyclobenzaprine 10 MG TAB ONE (23:22)
== END 2025-06-07 23:36 | disposition home or self-care (01) ==
LOC: NAV ERS 22:56
DX: S29.011A Strain of muscle and tendon of front wall of thorax, initial encounter (principal); J44.9 Chronic obstructive pulmonary disease, unspecified; F17.210 Nicotine dependence, cigarettes, uncomplicated; X58.XXXA Exposure to other specified factors, initial encounter
CPT/HCPCS: 99283

== ENCOUNTER 2025-06-10 14:01 | Emergency (ER) | payer OTHER | END 2025-06-10 15:12 | disposition left against medical advice (07) | LOC: NAV ERS 14:01 | DX: Z53.21 Procedure and treatment not carried out due to patient leaving prior to being seen by health care provider (principal) ==

== ENCOUNTER 2025-06-23 21:19 | Emergency (ER) | payer OTHER ==
[2025-06-23 22:40] LABS: #Basophils 0.1 thou/uL (0.0-0.2); #Eosinophils 0.2 thou/uL (0.0-0.7); #Lymphocytes 2.4 thou/uL (1.20-3.40); #Monocytes 0.5 thou/uL (0.11-0.59); #Neutrophils 5.2 thou/uL (1.40-6.50); %Basophils 1.1 % (0.0-1.0); %Eosinophils 2.0 % (0.0-10.0); %Lymphocytes 28.8 % (21.0-51.0); %Monocytes 5.4 % (0.0-10.0); %Neutrophils 62.7 % (42.0-75.0); Hematocrit 39.0 % (36.0-47.0); Hemoglobin 13.6 g/dL (12.0-16.0); Mean Corpuscular Hemoglobin 29.4 pg (27.0-31.0); Mean Corpuscular Volume 84.7 fl (78.0-98.0); Platelet Count 216 10x3/uL (130-400); Red Blood Cell (RBC) Count 4.61 mill/uL (4.20-5.40); White Blood Cell (WBC) Count 8.2 10x3/uL (4.8-10.8)
[2025-06-23 22:54] LABS: ALT (SGPT) 38 U/L (Less than 34); AST (SGOT) 50 U/L (11-34); Albumin 3.9 g/dL (3.1-4.5); Alkaline Phosphatase 118 U/L (40-110); Anion Gap 16 mmol/L (10-20); BUN (Urea Nitrogen) 9 mg/dL (9.8-20.1); Bilirubin, Total 0.3 mg/dL (0.3-1.2); Calc. Creatinine Clearance 0 mL/min (70-130); Calcium 9.1 mg/dL (7.8-10.44); Carbon Dioxide 25 mmol/L (23-31); Chloride 101 mmol/L (98-107); Globulin 3.5 g/dL (2.4-3.5); Glucose 112 mg/dL (80-115); Potassium 4.2 mmol/L (3.5-5.1); Sodium 138 mmol/L (136-145)
[2025-06-23 22:55] LABS: Troponin I Less than 0.010 ng/mL (< 0.028)
== END 2025-06-23 23:23 | disposition home or self-care (01) ==
LOC: NAV ERS 21:19
DX: R07.89 Other chest pain (principal); J44.9 Chronic obstructive pulmonary disease, unspecified; F17.210 Nicotine dependence, cigarettes, uncomplicated
CPT/HCPCS: 36415; 71045; 80053; 84484; 85025; 93005; 94760; 96372; J1885

== ENCOUNTER 2025-07-24 16:37 | Emergency (ER) | payer OTHER | END 2025-07-24 17:28 | disposition home or self-care (01) | LOC: NAV ERS 16:37 | DX: G56.02 Carpal tunnel syndrome, left upper limb (principal); F17.210 Nicotine dependence, cigarettes, uncomplicated | CPT/HCPCS: 96372; 99283; J1885 ==

== ENCOUNTER 2025-09-01 00:14 | Emergency (ER) | payer OTHER | END 2025-09-01 01:57 | disposition home or self-care (01) | LOC: NAV ERS 00:14 | DX: S60.222A Contusion of left hand, initial encounter (principal); S60.221A Contusion of right hand, initial encounter; S80.02XA Contusion of left knee, initial encounter; F10.129 Alcohol abuse with intoxication, unspecified; J44.9 Chronic obstructive pulmonary disease, unspecified; F17.210 Nicotine dependence, cigarettes, uncomplicated; W01.198A Fall on same level from slipping, tripping and stumbling with subsequent striking against other object, initial encounter | CPT/HCPCS: 99284 ==